=== PATIENT | male | born 1985 | race Caucasian/White ===

== ENCOUNTER 2020-08-03 14:58 | Emergency (ER) | payer OTHER ==
[~2020-08-03] VITALS: Ht 175.3 cm; Wt 82.6 kg
[~2020-08-03 14:58] MED LIST: NOHOMEMEDICATIONS; PENICILLIN V P500 MG PO
[2020-08-03] MEDS ORDERED: METHADONE10 MG/1 M2 PO (15:11)
[2020-08-03 15:23] LABS: AMP/METHAMP POSITIVE (Negative); BARBITURATES Negative (Negative); BENZODIAZEPINES Negative (Negative); COCAINE Negative (Negative); METHADONE POSITIVE (Negative); OPIATES Negative (Negative); PCP Negative (Negative)
[2020-08-03 15:32] LABS: URINE BILIRUBIN NEGATIVE (Negative); URINE BLOOD NEGATIVE (Negative); URINE CLARITY CLEAR; URINE COLOR YELLOW; URINE GLUCOSE-RANDOM* NEGATIVE (Negative); URINE KETONES NEGATIVE (Negative); URINE LEUKOCYTES-REFLEX NEGATIVE (Negative); URINE NITRITE-REFLEX NEGATIVE (Negative); URINE PROTEIN (DIPSTICK) NEGATIVE (Negative); URINE SPECIFIC GRAVITY >= 1.030 (1.005-1.035); URINE UROBILINOGEN 0.2 E.U./dl (0.2-1.0)
--- NOTE | 2020-08-03 16:01 | EKG ---
[facility] [place] [address] ELECTROCARDIOGRAM REPORT Name: GLENDA SPARKS Room #: PRE M.R.#: [id number] Admission: Attend Phys: Discharge: Date of : 87 Report #: [id number] THIS REPORT FOR: cc: CHRISTINE Arnold family physician/PCP Osmar Scales MD [facility] ~ THIS REPORT FOR: //name// [facility] ED Test Date: 2020-08-03 Test Time: 15:12:52 Pat Name: GLENDA SPARKS Department: Room: Gender: M Supervisor Shipping Room: [facility] : 1985 Requested By: Armin Hickman Order Number: [id number] MD: Osmar Scales Measurements Intervals [place] Rate: 90 P: 33 NC: 141 QRS: 38 QRSD: 103 T: 43 QT: 391 QTc: 479 Interpretive Statements Sinus rhythm Borderline prolonged QT interval No previous ECG available for comparison Electronically Signed On 08-03-2020 16:01:37 CDT by Osmar Scales [email or web address] <ELECTRONICALLY SIGNED> By: Osmar Scales MD, FACC 08/03/20 1601 151 11 Osmar Scales MD, FACC /EPI
[2020-08-03 16:25] LABS: BASOPHILS 0.6 % (0.0-2.0); EOSINOPHILS 2.5 % (0.0-3.0); HEMATOCRIT 41.7 % (42.0-52.0); HEMOGLOBIN 14.2 gm/dL (14.0-18.0); MCH 31.1 pg (26.0-34.0); MCV 91.3 fL (80.0-100.0); MONOCYTES 10.2 % (1.0-8.0); PLATELET COUNT 271 thou/uL (150-400); POLYS 56.7 % (36.0-66.0); RBC 4.57 mil/uL (4.50-6.00); RDW 13.4 % (10.5-14.5); WBC 7.1 thou/uL (4.0-11.0)
[2020-08-03 16:53] LABS: CALCIUM 8.9 mg/dL (8.5-10.1); POTASSIUM 4.1 mmol/L (3.5-5.1)
[2020-08-03 17:00] LABS: TOTAL BILIRUBIN 0.2 mg/dL (0.2-1.0); TOTAL PROTEIN 7.8 g/dL (6.4-8.2)
[2020-08-03 17:03] LABS: MAGNESIUM 2.3 mg/dL (1.8-2.4)
[2020-08-03 17:25] LABS: SALICYLATE 3.4 mg/dL (2.8-20.0)
[2020-08-04 00:12] VITALS: BP 114/61
== END 2020-08-04 00:30 | disposition home or self-care (01) ==
LOC: ER 14:58
PROVIDERS: Physician Assistant
DX: S93.402A Sprain of unspecified ligament of left ankle, initial encounter (principal); F19.10 Other psychoactive substance abuse, uncomplicated; F10.10 Alcohol abuse, uncomplicated; R60.0 Localized edema; Z79.899 Other long term (current) drug therapy; X58.XXXA Exposure to other specified factors, initial encounter; Y93.89 Activity, other specified; Y92.89 Other specified places as the place of occurrence of the external cause; Y99.8 Other external cause status; Y90.9 Presence of alcohol in blood, level not specified